=== PATIENT | female | born 1995 | race Caucasian/White ===

== ENCOUNTER 2021-02-12 11:28 | Outpatient (REF) | payer OTHER, SELFPAY ==
--- NOTE | 2021-02-12 08:30 | SKI_PTH ---
PATIENT: NAVJOT PATEL LOC: [facility] U#:[id number] AGE/SX: 25/F ROOM: RE02/12/[address]: Aurora Webster : 1995 BED: DIS: 02/12/2021 SPEC #: [id number] RECD: 02/12/21 12:31 STATUS: ONDINA SANCHEZ #: [id number] SHERICE: 02/12/21 08:[address]: Aurora Webster DEPT: Surgical Specimen RECD BY: Mariaelena Barrera Tissues: 1 - SKIN BIOPSY(SHAVE/PUNCH) Procedures: IMMUNOPEROXIDASE STAIN SKIN LEVEL 4 Comments: [id number]
== END 2021-02-12 11:29 | disposition home or self-care (01) ==
LOC: NCHCN 11:28
PROVIDERS: PCP Nurse Practitioner Family; Visit Provider Nurse Practitioner Family
DX: L90.5 Scar conditions and fibrosis of skin (principal); N64.89 Other specified disorders of breast
CPT/HCPCS: 88305; 88361